=== PATIENT | female | born 1950 | race Caucasian/White ===

== ENCOUNTER 2018-11-05 12:27 | Outpatient (CLI) | payer MEDICARE, MEDICAID ==
[~2018-11-05 12:27] MED LIST: ACCOLATE20 MG PO; ADVAIR 250/501 DISK INH; ATROVENT 0.02%2.5 ML UPD; COMBIVENT RESPIM4 GM INH; DIOVAN80 MG PO; EXCEDRIN TENSI1 EACH PO; IPRAT-ALBUT 0.5-3 ML NEB; LOTRISONE LOTIO30 ML TP; MAXZIDE-25 MG T1 TAB PO; NYSTATIN ORAL SU5 ML PO; PREDNISONE20 MG PO; PROTONIX40 MG PO; PULMICORT0.5 MG/21 INH; SPIRIVA18 MCG INH; STERAPRED 5MG 125 MG; STERAPRED 5MG 125 MG PO; XOPENEX 1.1.25 MG/3 UPD; ZITHROMAX TRI-500 MG PO; ZITHROMAX250 MG PO
[2018-11-05 13:43] VITALS: BP 143/77; BMI 26.4
== END 2018-11-05 14:05 | disposition home or self-care (01) ==
LOC: D.OPS 12:27
PROVIDERS: ATTEND Emergency Medicine
DX: M81.0 Age-related osteoporosis without current pathological fracture (principal)

== ENCOUNTER 2019-05-07 12:05 | Outpatient (CLI) | payer MEDICARE, MEDICAID ==
[~2019-05-07] VITALS: Ht 152.4 cm; Wt 62.7 kg
[2019-05-07 12:32] VITALS: BP 136/70; Ht 152.4 cm; Wt 62.7 kg
== END 2019-05-07 12:40 | disposition home or self-care (01) ==
LOC: D.OPS 12:05
PROVIDERS: ATTEND Emergency Medicine
DX: M81.0 Age-related osteoporosis without current pathological fracture (principal)

== ENCOUNTER 2020-08-10 13:00 | Outpatient (CLI) | payer MEDICARE, MEDICAID ==
[~2020-08-10] VITALS: Ht 152.4 cm; Wt 54.5 kg
[2020-08-10 13:43] VITALS: BP 143/65; Ht 152.4 cm; Wt 54.5 kg
== END 2020-08-10 13:38 | disposition home or self-care (01) ==
LOC: D.OPS 13:00
PROVIDERS: ATTEND Emergency Medicine
DX: M81.0 Age-related osteoporosis without current pathological fracture (principal)